=== PATIENT | male | born 1990 | race Caucasian/White ===

== ENCOUNTER 2018-11-04 09:26 | Emergency (ER) | payer OTHER ==
[~2018-11-04] VITALS: Ht 190.5 cm; Wt 78.0 kg
[2018-11-04 09:33] VITALS: Ht 190.5 cm; Wt 78.0 kg
[2018-11-04 11:34] VITALS: BP 121/68
== END 2018-11-04 11:34 | disposition home or self-care (01) ==
LOC: ED 09:26
DX: R51 Headache (principal); F12.90 Cannabis use, unspecified, uncomplicated; J45.909 Unspecified asthma, uncomplicated; F41.9 Anxiety disorder, unspecified